=== PATIENT | female | born 2000 | race Two or more races ===

== ENCOUNTER 2019-04-16 04:28 | Inpatient (IN) | payer SELFPAY ==
[~2019-04-16] VITALS: Ht 160 cm; Wt 63.7 kg
[2019-04-16] MEDS ORDERED: ACETAMINOPHEN 325 MG TABLET. PO PRN ×2 (04:45→10:30)
[2019-04-16] MEDS ORDERED: MAG HYDROX/ALUMINUM HYD/SIMETH 30 ML ORAL.SUSP PO PRN ×2 (04:45→10:30)
[2019-04-16] MEDS ORDERED: ONDANSETRON PF 4 MG/2 ML VIAL. IV PRN (04:45)
[2019-04-16] MEDS ORDERED: IV RINGERS,LACTATED 1000ML 1,000 ML IV PRN ×2 (04:45)
[2019-04-16] MEDS ORDERED: 0.9 % SODIUM CHLORIDE 10 ML DISP.SYRIN. IV PRN ×3 (04:45→10:30)
[2019-04-16 04:46] VITALS: BP 106/70
[2019-04-16] MEDS ORDERED: IV RINGERS,LACTATED 1000ML 1,000 ML IV SCH (04:54)
[2019-04-16] MEDS ORDERED: IBUPROFEN 400 MG TABLET. PO PRN (05:00)
[2019-04-16] MEDS ORDERED: TERBUTALINE 1 MG/ML VIAL. SQ PRN (05:00)
[2019-04-16] MEDS ORDERED: OXYTOCIN 30 UNIT/500 ML PREMIX 500 ML IV PRN ×5 (05:00→10:30)
[2019-04-16] MEDS ORDERED: LIDOCAINE 1% PF 30 ML VIAL. INJ PRN (05:00)
[2019-04-16 05:09] LABS: BILIRUBIN,URINE NEGATIVE (NEG); CLARITY,URINE CLEAR; COLOR,URINE YELLOW; NITRITE,URINE NEGATIVE (NEG); PH,URINE 7.5; PROTEIN,URINE NEGATIVE (NEG-TRACE)
[2019-04-16 05:15] LABS: BACTERIA,URINE 0 /HPF (0-FEW); BARBITURATES NEG (NEG); BENZODIAZEPINES NEG (NEG); CANNABINOIDS NEG (NEG); COCAINE NEG (NEG); METHADONE NEG (NEG); OPIATES NEG (NEG); PHENCYCLIDINE NEG (NEG); SQUAMOUS EPITHELIAL CELL,UR MANY /LPF
[2019-04-16 05:17] LABS: AMNIO PT POSITIVE
[2019-04-16] MEDS ORDERED: fentaNYL PF VIAL 100 MCG/2 ML VIAL IV PRN (05:30)
[2019-04-16] MEDS ORDERED: NALBUPHINE 10 MG/ML AMPUL. IV PRN (05:30)
[2019-04-16 05:31] LABS: AMPHETAMINE/METHAMPHETAMINE NEG (NEG)
[2019-04-16 05:57] LABS: BASO # 0.1 x10^3/uL (0.0-0.2); BASO % 1 % (0-3); EOS % 0 % (0-3); HEMATOCRIT 30.2 % (36.0-47.0); HEMOGLOBIN 9.7 g/dL (12.0-15.5); LYMPH # 1.9 x10^3/uL (1.0-4.8); LYMPH % 17 % (24-48); MEAN CORPUSCULAR HEMOGLOBIN 23 pg (25-35); MEAN CORPUSCULAR HGB CONC 32 g/dL (31-37); MEAN CORPUSCULAR VOLUME 72 fL (79-100); MONO # 0.5 x10^3/uL (0.0-1.1); MONO % 5 % (0-9); NEUT # 8.6 x10^3/uL (1.8-7.7); NEUT % 77 % (31-73); PLATELET COUNT 512 x10^3/uL (140-400); RED BLOOD COUNT 4.17 x10^6/uL (3.50-5.40); RED CELL DISTRIBUTION WIDTH 17.1 % (11.5-14.5); WHITE BLOOD COUNT 11.1 x10^3/uL (4.0-11.0)
[2019-04-16] MEDS ORDERED: PENICILLIN G K 5,000,000 UNIT in IV DEXTROSE 5% 100ML 100 ML IV ONE (06:00)
--- NOTE | 2019-04-16 08:41 | PDOC1 ---
OB - History Hx of Present Care: Good Care Ultrasounds: Normal mid trimester US Obstetrical Complications: None Medical Complications: None Past Family/Social History * Past Medical, Surgical, Family and Obstetric Histories reviewed from chart. Rubella: Immune RPR/VDRL: Negative GBS Status: Unknown HBsAG: Negative OB - Chief Complaint & HPI Date of Admission: Date of Admission: Apr 16, 2019 at 04:28 Chief Complaint/History : 1 Para: 0 EGA: 36 Reason for admission: labor, rupture of membranes Admission Nurse Assessment Rev: Yes OB - Admission Exam Physical Exam Vitals: VS - Last 72 Hours, by Label Date Time Temp Pulse Resp B/P (MAP) Pulse Ox O2 Delivery O2 Flow Rate FiO2 04/16/19 04:46 98.2 20 106/70 (82) Room Air 98.2 HEENT: Normal Heart: Regular Rate Lungs: Clear Abdomen: Gravid, Non tender, Soft Extremities: Edema Reflexes: Normal Cervical Dilatation: 3cm Effacement: 75% Station: -3 Membranes: Ruptured Amniotic Fluid: Clear Accelerations: Accelerations Present Decelerations: No decelerations Contractions on Admission: 6-10 Minutes Apart Intensity: Mild Text A: 36 wks IUP PPROM GBS unknown P: Admit for labor management. Give Pen G prophylaxis for GBS unknown status. Start Pitocin augmentation. BRIAN PATRICK Jr, MD Apr 16, 2019 08:41
[2019-04-16] MEDS ORDERED: PENICILLIN G K 2,500,000 UNIT in IV DEXTROSE 5% 50 ML IV SCH (10:00)
--- NOTE | 2019-04-16 10:27 | PDOC ---
VAGINAL DELIVERY DATE DATE: 04/16/19 TIME: 10:24 : 1 Para: 1 EGA: 36 VAGINAL DELIVERY: VTX VACCUM ASSISTED: No PLACENTA: Spontaneous 8/9 SEX: Male WEIGHT Weight [ 2850 gm] Nuchal Cord: No Amniotic Fluid: Clear PAIN: Natural EPISIOTOMY: Yes (2nd midline episiotomy) EXTENSION: Yes (3rd degree midline laceration) REPAIRED WITH 2-0 vicryl EBL 300 ml COMPLICATIONS none Signs of Intrauterine Infectio: None Shoulder Dystocia: No BRIAN PATRICK Jr, MD Apr 16, 2019 10:26
[2019-04-16] MEDS ORDERED: diphenhydrAMINE HCL 25 MG CAPSULE PO PRN (10:30)
[2019-04-16] MEDS ORDERED: HYDROCORTISONE 1% TOPICAL OINTMENT 30GM TUBE. TP PRN (10:30)
[2019-04-16] MEDS ORDERED: SIMETHICONE 80 MG TAB.CHEW PO PRN (10:30)
[2019-04-16] MEDS ORDERED: PHENYLEPH/MINERAL OIL/PETROLAT RECTAL OINTMENT TUBE. RC PRN (10:30)
[2019-04-16] MEDS ORDERED: MAGNESIUM HYDROXIDE 2,400 MG/30 ML ORAL.SUSP. PO PRN (10:30)
[2019-04-16] MEDS ORDERED: MMR per PROTOCOL. MC PRN (10:30)
[2019-04-16] MEDS ORDERED: oxyCODONE/APAP 5/325 1 TAB TABLET PO PRN (10:30)
[2019-04-16] MEDS ORDERED: ZOLPIDEM 5 MG TABLET. PO PRN (10:30)
[2019-04-16] MEDS: BENZOCAINE 20% TOPICAL AEROSOL SPRAY 57GM CAN. TP PRN (11:52)
[2019-04-16 12:20] VITALS: BP 112/68
[2019-04-16 13:14] VITALS: BP 105/60
[2019-04-16 17:00] VITALS: BP 96/60
[2019-04-16] MEDS: IBUPROFEN 400 MG TABLET. PO PRN (21:18)
[2019-04-16 21:56] VITALS: BP 107/67
[2019-04-17] MEDS: IBUPROFEN 400 MG TABLET. PO PRN ×3 (06:19→18:04)
[2019-04-17 06:32] VITALS: BP 95/60
[2019-04-17] MEDS: FERROUS SULFATE 325 MG TABLET. PO SCH ×2 (08:00→18:04)
[2019-04-17] MEDS: DOCUSATE SODIUM 100 MG CAPSULE. PO PRN ×2 (08:23→18:03)
[2019-04-17] MEDS: BENZOCAINE 20% TOPICAL AEROSOL SPRAY 57GM CAN. TP PRN (08:25)
--- NOTE | 2019-04-17 10:32 | PDOC ---
OB Progress Note Date of Service 04/17/19 Time of Evaluation 1025 Notes Pt. feeling well. No complaints. Lab Laboratory Tests Test 04/16/19 05:00 04/16/19 05:45 04/16/19 14:15 Urine Collection Type Unknown Urine Color Yellow Urine Clarity Clear Urine pH 7.5 Urine Specific [place] 1.015 Urine Protein Negative mg/dL (NEG-TRACE) Urine Glucose (UA) Negative mg/dL (NEG) Urine Ketones (Stick) Negative mg/dL (NEG) Urine Blood Moderate (NEG) Urine Nitrite Negative (NEG) Urine Bilirubin Negative (NEG) Urine Urobilinogen Dipstick 1.0 mg/dL (0.2 mg/dL) Urine Leukocyte Esterase Negative (NEG) Urine RBC 11-20 /HPF (0-2) Urine WBC 1-4 /HPF (0-4) Urine Squamous Epithelial Cells Many /LPF Urine Bacteria 0 /HPF (0-FEW) Urine Mucus Slight /LPF Amniotic Fluid Swab Test Positive Urine Opiates Screen Neg (NEG) Urine Methadone Screen Neg (NEG) Urine Barbiturates Neg (NEG) Urine Phencyclidine Screen Neg (NEG) Urine Amphetamine/Methamphetamine Neg (NEG) Urine Benzodiazepines Screen Neg (NEG) Urine Cocaine Screen Neg (NEG) Urine Cannabinoids Screen Neg (NEG) Urine Ethyl Alcohol Neg (NEG) White Blood Count 11.1 x10^3/uL (4.0-11.0) Red Blood Count 4.17 x10^6/uL (3.50-5.40) Hemoglobin 9.7 g/dL (12.0-15.5) Hematocrit 30.2 % (36.0-47.0) Mean Corpuscular Volume 72 fL (79-100) Mean Corpuscular Hemoglobin 23 pg (25-35) Mean Corpuscular Hemoglobin Concent 32 g/dL (31-37) Red Cell Distribution Width 17.1 % (11.5-14.5) Platelet Count 512 x10^3/uL (140-400) Neutrophils (%) (Auto) 77 % (31-73) Lymphocytes (%) (Auto) 17 % (24-48) Monocytes (%) (Auto) 5 % (0-9) Eosinophils (%) (Auto) 0 % (0-3) Basophils (%) (Auto) 1 % (0-3) Neutrophils # (Auto) 8.6 x10^3/uL (1.8-7.7) Lymphocytes # (Auto) 1.9 x10^3/uL (1.0-4.8) Monocytes # (Auto) 0.5 x10^3/uL (0.0-1.1) Eosinophils # (Auto) 0.0 x10^3/uL (0.0-0.7) Basophils # (Auto) 0.1 x10^3/uL (0.0-0.2) Treponema pallidum Antibody Nonreactive (Nonreactive) Hepatitis B Surface Antigen Nonreactive (Nonreactive) Laboratory Tests Test 04/16/19 14:15 Hepatitis B Surface Antigen Nonreactive (Nonreactive) Medications Current Medications Ringer's Solution 1,000 ml @ 1,000 mls/hr Q1H PRN IV LR Bolus contractions Last administered on 04/16/19at 05:51; Start 04/16/19 at 04:45; Stop 04/16/19 at 20:55; Status DC Ringer's Solution 1,000 ml @ 125 mls/hr Q8H PRN IV CONTINUOUS INFUSION/ PAIN; Start 04/16/19 at 04:45; Stop 04/16/19 at 20:55; Status DC Sodium Chloride (Normal Saline Flush) 3 ml QSHIFT PRN IV AFTER MEDS AND BLOOD DRAWS; Start 04/16/19 at 04:45; Stop 04/16/19 at 20:55; Status DC Acetaminophen (Tylenol) 650 mg PRN Q6HRS PRN PO PAIN, TEMP > 100.5'F; Start 04/16/19 at 04:45; Stop 04/16/19 at 15:19; Status DC Al Hydroxide/Mg Hydroxide (Mylanta Plus Xs) 15 ml PRN Q4HRS PRN PO HEARTBURN / GAS; Start 04/16/19 at 04:45; Stop 04/16/19 at 20:55; Status DC Ondansetron HCl (Zofran) 4 mg PRN Q6HRS PRN IV NAUSEA 1ST CHOICE; Start 04/16/19 at 04:45; Stop 04/16/19 at 20:55; Status DC Sodium Chloride (Normal Saline Flush) 3 ml QSHIFT PRN IV AFTER MEDS AND BLOOD DRAWS; Start 04/16/19 at 05:00; Stop 04/16/19 at 20:55; Status DC Ringer's Solution 1,000 ml @ 125 mls/hr Q8H IV Last administered on 04/16/19at 08:33; Start 04/16/19 at 04:54; Stop 04/16/19 at 20:55; Status DC Terbutaline Sulfate (Brethine) 0.25 mg 1X PRN PRN SQ SEE COMMENTS; Start 04/16/19 at 05:00; Stop 04/16/19 at 20:55; Status DC Lidocaine HCl (Xylocaine 1% Pf 30ml Vial) 30 ml 1X PRN PRN INJ SEE COMMENTS Last administered on 04/16/19at 11:43; Start 04/16/19 at 05:00; Stop 04/16/19 at 20:55; Status DC Oxytocin/Sodium Chloride 500 ml @ 0 mls/hr CONT PRN IV SEE I/O RECORD; Start 04/16/19 at 05:00; Status Cancel Oxytocin/Sodium Chloride 500 ml @ 0 mls/hr CONT PRN PRN IV Post delivery bleeding; Start 04/16/19 at 05:00; Stop 04/16/19 at 20:55; Status DC Ibuprofen (Motrin) 800 mg PRN Q6HRS PRN PO MODERATE PAIN 4-6 Last administered on 04/16/19at 11:54; Start 04/16/19 at 05:00; Stop 04/16/19 at 15:20; Status DC Nalbuphine HCl (Nubain) 10 mg PRN Q1HR PRN IV Severe labor pain; Start 04/16/19 at 05:30; Stop 04/16/19 at 20:55; Status DC Fentanyl Citrate (Fentanyl 2ml Vial) 100 mcg PRN Q10MIN PRN IV Labor pain; Start 04/16/19 at 05:30; Stop 04/16/19 at 20:55; Status DC Penicillin G Potassium 5537921 unit/Dextrose 100 ml @ 100 mls/hr 1X ONCE IV Last administered on 04/16/19at 05:51; Start 04/16/19 at 06:00; Stop 04/16/19 at 20:55; Status DC Penicillin G Potassium [id number] unit/Dextrose 50 ml @ 100 mls/hr Q4H IV ; Start 04/16/19 at 10:00; Stop 04/16/19 at 20:55; Status DC Oxytocin/Sodium Chloride 500 ml @ 0 mls/hr CONT PRN IV SEE I/O RECORD Last administered on 04/16/19at 08:35; Start 04/16/19 at 08:00; Stop 04/16/19 at 20:55; Status DC Oxytocin/Sodium Chloride 500 ml @ 0 mls/hr CONT PRN IV SEE I/O RECORD; Start 04/16/19 at 08:15; Stop 04/16/19 at 08:38; Status DC Sodium Chloride (Normal Saline Flush) 10 ml QSHIFT PRN IV AFTER MEDS AND BLOOD DRAWS; Start 04/16/19 at 10:30 Oxytocin/Sodium Chloride 500 ml @ 62.5 mls/hr CONT PRN IV SEE I/O RECORD; Start 04/16/19 at 10:30; Stop 04/16/19 at 18:29; Status DC Acetaminophen (Tylenol) 650 mg PRN Q6HRS PRN PO MILD PAIN / TEMP; Start 04/16/19 at 10:30 Ibuprofen (Motrin) 800 mg PRN Q8HRS PRN PO INFLAMMATION/PAIN PREVENTION Last administered on 04/17/19at 08:25; Start 04/16/19 at 10:30 Docusate Sodium (Colace) 100 mg PRN BID PRN PO CONSTIPATION, 1st Choice Last administered on 04/17/19at 08:25; Start 04/16/19 at 10:30 Magnesium Hydroxide (Milk Of Magnesia) 2,400 mg PRN DAILY PRN PO CONSTIPATION; Start 04/16/19 at 10:30 Al Hydroxide/Mg Hydroxide (Mylanta Plus Xs) 30 ml PRN Q4HRS PRN PO HEARTBURN / GAS; Start 04/16/19 at 10:30 Simethicone (Gas-X) 80 mg PRN AFTMEALHC PRN PO GAS / BLOATING; Start 04/16/19 at 10:30 Diphenhydramine HCl (Benadryl) 25 mg PRN Q6HRS PRN PO ITCHING; Start 04/16/19 at 10:30 Benzocaine (Americaine) 1 spray PRN QID PRN TP TOPICAL PAIN Last administered on 04/17/19at 08:25; Start 04/16/19 at 10:30 Phenyleph/Shark Oil/Min Oil/Petrol (Preparation H) 1 kelle PRN QID PRN RC RECTAL PAIN; Start 04/16/19 at 10:30 Hydrocortisone (Cortaid) 1 kelle PRN QID PRN TP PERINEAL PAIN; Start 04/16/19 at 10:30 Ferrous Sulfate (Feosol) 325 mg BIDWMEALS PO Last administered on 04/17/19at 08:25; Start 04/17/19 at 08:00 Zolpidem Tartrate (Ambien) 5 mg PRN QHS PRN PO INSOMNIA, MAY REPEAT X1; Start 04/16/19 at 10:30 Info (Do NOT chart on this placeholder) 1 ea 1X PRN PRN MC SEE COMMENTS; Start 04/16/19 at 10:30 Info (Do NOT chart on this placeholder) 1 ea 1X PRN PRN MC SEE COMMENTS; Start 04/16/19 at 10:30 Oxycodone/ Acetaminophen (Percocet 5/325) 2 tab PRN Q4HRS PRN PO MODERATE PAIN, SEVERE PAIN; Start 04/16/19 at 10:30 Exam Abd: soft, non tender, fundus firm Assessment PPD# 1 s/p Plan of Care: Continue current Tx, Mgmt BRIAN PATRICK Jr, MD Apr 17, 2019 10:32
[2019-04-17 11:09] LABS: BASO % 0 % (0-3); EOS % 0 % (0-3); HEMATOCRIT 26.2 % (36.0-47.0); HEMOGLOBIN 8.6 g/dL (12.0-15.5); LYMPH # 1.2 x10^3/uL (1.0-4.8); LYMPH % 11 % (24-48); MEAN CORPUSCULAR HEMOGLOBIN 24 pg (25-35); MEAN CORPUSCULAR HGB CONC 33 g/dL (31-37); MEAN CORPUSCULAR VOLUME 74 fL (79-100); MONO # 0.6 x10^3/uL (0.0-1.1); MONO % 6 % (0-9); NEUT # 8.7 x10^3/uL (1.8-7.7); NEUT % 82 % (31-73); PLATELET COUNT 444 x10^3/uL (140-400); RED BLOOD COUNT 3.56 x10^6/uL (3.50-5.40); RED CELL DISTRIBUTION WIDTH 17.4 % (11.5-14.5); WHITE BLOOD COUNT 10.6 x10^3/uL (4.0-11.0)
[2019-04-17 11:20] VITALS: BP 107/65
[2019-04-17 15:00] VITALS: BP 102/84
[2019-04-17 18:42] VITALS: BP 89/60
[2019-04-18 00:23] VITALS: BP 98/60
[2019-04-18 06:27] VITALS: BP 99/62
[2019-04-18] MEDS: DOCUSATE SODIUM 100 MG CAPSULE. PO PRN (09:41)
[2019-04-18] MEDS: IBUPROFEN 400 MG TABLET. PO PRN (09:42)
[2019-04-18] MEDS: FERROUS SULFATE 325 MG TABLET. PO SCH (09:42)
[2019-04-18 10:20] VITALS: BP 100/60
--- NOTE | 2019-04-18 14:54 | PDOC3 ---
OB DISCHARGE SUMMARY DATE OF ADMISSION: 04/16/19 DATE OF DISCHARGE: 04/18/19 REASON FOR ADMISSION: Onset of labor INTRAPARTUM PROCEDURES: Spontanous Vag Deliv DISCHARGE DIAGNOSIS: Term Delivered DISCHARGE INFORMATION: Activity (ad gagandeep), Diet (regular), Instructions (pelvic rest x 6 wks) HOSPITAL COURSE Term gestation delivered vaginally without complications. BRIAN PATRICK Jr, MD Apr 18, 2019 14:54
[2019-04-18] MEDS ORDERED: IBUP-1027 PO (14:56)
--- NOTE | 2019-04-18 14:57 | DISCH ---
DISCHARGE INSTRUCTIONS Condition on Discharge Condition on Discharge: Stable Activity After Discharge Activity Instructions for Disc: Activity as tolerated Lifting Instructions after Dis: No heavy lifting Driving Instructions after Dis: Do not drive today Diet after Discharge Diet after Discharge: Regular Contacting the [facility] after DC Call your doctor for: Concerns you may have Follow-Up Follow up with: Ketan in 6 wks. BRIAN PATRICK Jr, MD Apr 18, 2019 14:57
[2019-04-18 16:00] VITALS: BP 99/66
== END 2019-04-18 16:37 | disposition home or self-care (01) | DRG 768 ==
LOC: 3 SO LND 04:28 → OBSVTOIN 05:16 → EDBD 05:16 → 3 NORTH 12:20
PROVIDERS: ADMIT Obstetrics & Gynecology; ATTEND Obstetrics & Gynecology
PROC: 10E0XZZ Delivery of Products of Conception, External Approach (ICD-10-PCS; principal; 2019-04-16)
PROC: 0W8NXZZ Division of Female Perineum, External Approach (ICD-10-PCS; 2019-04-16)
PROC: 0DQR0ZZ Repair Anal Sphincter, Open Approach (ICD-10-PCS; 2019-04-16)
DX: O60.14X0 Preterm labor third trimester with preterm delivery third trimester, not applicable or unspecified (principal); Z37.0 Single live birth; O70.20 Third degree perineal laceration during delivery, unspecified; Z3A.36 36 weeks gestation of pregnancy; O42.013 Preterm premature rupture of membranes, onset of labor within 24 hours of rupture, third trimester
CPT/HCPCS: 36415; 80307; 81001; 84112; 85025; 86592; 86703; 86762; 86850; 86900; 86901; 87340; 87653; G0379; J2540; J2590; J7120; G0378

== ENCOUNTER → 2020-05-23 | Outpatient (CLI) | payer MEDICAID ==
[~2020-05-23] MED LIST: IBUP-1027 PO
--- NOTE | 2020-05-23 15:44 | KCIC ---
AP and Lateral Views of the Chest 05/23/2020 12:00 AM Indication: Reason: Follow up TB / Spl. Instructions: / History: Comparison: None available Findings: No pneumothorax or pleural effusion is identified. Heart size appears to be normal. Linear opacities suggestive of pleural parenchymal scarring are noted in the right midlung in the right upper lung. No definitive adenopathy is identified. No calcified granulomata are seen. Dextroscoliosis of the thoracic spine noted. No acute osseous changes are seen. IMPRESSION: Linear opacities in the right upper and mid lungs most suggestive for parenchymal scarring. Recommend comparison with prior exams versus alternatively 3-6 month follow-up chest radiograph to ensure stability. Electronically signed by: Farhad Shipley MD (05/23/2020 3:40 PM) [id number]
== END ==
LOC: KCIC 12:44
PROVIDERS: ATTEND Family Medicine
DX: Z11.1 Encounter for screening for respiratory tuberculosis (principal); J98.4 Other disorders of lung
CPT/HCPCS: 71046

== ENCOUNTER 2020-12-04 19:09 | Observation (INO) | payer MEDICAID ==
[2020-12-04 20:13] LABS: BILIRUBIN,URINE NEGATIVE (NEG); CLARITY,URINE CLOUDY; COLOR,URINE YELLOW; NITRITE,URINE POSITIVE (NEG); PROTEIN,URINE NEGATIVE (NEG-TRACE)
[2020-12-04 20:21] LABS: BARBITURATES NEG (NEG); BENZODIAZEPINES NEG (NEG); CANNABINOIDS NEG (NEG); COCAINE NEG (NEG); METHADONE NEG (NEG); OPIATES NEG (NEG); PHENCYCLIDINE NEG (NEG)
[2020-12-04 20:22] LABS: AMPHETAMINE/METHAMPHETAMINE NEG (NEG)
[2020-12-04 20:26] LABS: BACTERIA,URINE MODERATE /HPF (0-FEW); WBC,URINE >40 /HPF (0-4)
[2020-12-04 20:28] LABS: RBC,URINE 0 /HPF (0-2)
== END 2020-12-04 21:08 | disposition home or self-care (01) ==
LOC: ER 19:09 → 3 SO LND 19:41
PROVIDERS: ADMIT Obstetrics & Gynecology; ATTEND Obstetrics & Gynecology
DX: O26.893 Other specified pregnancy related conditions, third trimester (principal); R10.13 Epigastric pain; R07.81 Pleurodynia; Z3A.31 31 weeks gestation of pregnancy; Z79.899 Other long term (current) drug therapy
CPT/HCPCS: 59025; 80307; 81001; 81025; 87086; G0378; G0379

== ENCOUNTER 2020-12-04 19:43 | Observation (INO) | payer MEDICAID ==
[2020-12-04 20:13] LABS: BILIRUBIN,URINE NEGATIVE (NEG); CLARITY,URINE CLOUDY; COLOR,URINE YELLOW; NITRITE,URINE POSITIVE (NEG); PROTEIN,URINE NEGATIVE (NEG-TRACE)
[2020-12-04] MEDS ORDERED: IV RINGERS,LACTATED 1000ML 1,000 ML IV PRN (20:15)
[2020-12-04 20:21] LABS: BARBITURATES NEG (NEG); BENZODIAZEPINES NEG (NEG); CANNABINOIDS NEG (NEG); COCAINE NEG (NEG); METHADONE NEG (NEG); OPIATES NEG (NEG); PHENCYCLIDINE NEG (NEG)
[2020-12-04 20:22] LABS: AMPHETAMINE/METHAMPHETAMINE NEG (NEG)
[2020-12-04 20:26] LABS: BACTERIA,URINE MODERATE /HPF (0-FEW); WBC,URINE >40 /HPF (0-4)
[2020-12-04 20:28] LABS: RBC,URINE 0 /HPF (0-2)
== END 2020-12-04 21:08 | disposition home or self-care (01) ==
LOC: 3 SO LND 19:43
PROVIDERS: ADMIT Obstetrics & Gynecology; ATTEND Obstetrics & Gynecology
DX: O26.893 Other specified pregnancy related conditions, third trimester (principal); R10.13 Epigastric pain; R07.81 Pleurodynia; Z3A.31 31 weeks gestation of pregnancy; Z79.899 Other long term (current) drug therapy
CPT/HCPCS: 59025; 80307; 81001; 87086; G0378; G0379